=== PATIENT | female | born 1955 | race African-American/Black ===

== ENCOUNTER 2024-01-29 12:25 | Inpatient (IN) | payer MEDICARE, MEDICAID ==
[~2024-01-29 12:25] MED LIST: Iopamidol-370 76% 500 ML MDV (1 ML CHARGE) ONE
[2024-01-29] MEDS ORDERED: TETANUS, DIPHTHERIA TOX,ADULT (TDVAX) 0.5 ML VIAL IM ONE (15:24)
[2024-01-29] MEDS ORDERED: Ondansetron PF 4 MG/2 ML Vial IVP PRN (15:24)
[2024-01-29] MEDS ORDERED: Ondansetron ODT 4 MG TAB PO PRN (15:24)
[2024-01-29] MEDS ORDERED: Methocarbamol 500 MG TAB PO PRN (15:24)
[2024-01-29] MEDS ORDERED: Dextrose 50% Abboject 50 ML SYRINGE SLOW IVP PRN (15:24)
[2024-01-29] MEDS ORDERED: Dextrose 5% in Water 1,000 ML IV PRN (15:24)
[2024-01-29] MEDS ORDERED: Glucagon 1 MG/ML KIT IM PRN (15:24)
[2024-01-29] MEDS ORDERED: Acetaminophen 325 MG TAB PO PRN (15:24)
[2024-01-29] MEDS ORDERED: Lorazepam 1 MG TAB PO PRN (16:58)
[2024-01-29] MEDS ORDERED: Lorazepam 2 MG/ML VIAL IM PRN (16:58)
[2024-01-29] MEDS ORDERED: Electrolyte Replacement Protocol 1 EACH FS SCH (17:00)
[2024-01-29] MEDS: Sodium Chloride 0.9% 1,000 ML IV SCH (19:32)
[2024-01-29] MEDS: Lorazepam 1 MG TAB PO SCH (19:32)
[2024-01-29] MEDS: Thiamine HCl 200 MG/2 ML VIAL SLOW IVP SCH (19:33)
[2024-01-29] MEDS: Folic Acid 1 MG TAB PO SCH (19:34)
[2024-01-29 19:40] VITALS: BMI 25.0
[2024-01-29] MEDS: TETANUS AND DIPHTHERIA TOX/PF 0.5 ML DISP.SYRIN IM SCH (20:39)
[2024-01-29] MEDS: Metoprolol Tartrate 25 MG TAB PO SCH (20:40)
[2024-01-29] MEDS: Multivit, Therapeutic 1 TAB PO SCH (20:40)
[2024-01-29 22:08] LABS: Magnesium 1.4 mg/dL (1.6-2.6); Phosphorus 3.2 mg/dL (2.3-4.7)
[2024-01-29] MEDS: Magnesium Sulfate In Water 4 GM in Premix 1 BAG IVPB SCH (22:42)
[2024-01-30] MEDS: traMADol HCl 50 MG TAB PO PRN (04:08)
[2024-01-30 05:20] LABS: #Basophils 0.07 10x3/uL (0.0-0.2); %Basophils 0.5 % (0.0-1.0); %Eosinophils 0.5 % (0.0-10.0); %Lymphocytes 25.8 % (21.0-51.0); %Monocytes 13.1 % (0.0-10.0); %Neutrophils 59.4 % (42.0-75.0); Hemoglobin 8.7 g/dL (12.0-16.0); Mean Corpuscular HGB CONC 33.5 g/dL (32.0-36.0); Mean Corpuscular Hemoglobin 31.3 pg (27.0-31.0); Mean Corpuscular Volume 93.5 fL (78.0-98.0); Mean Platelet Volume 9.7 fL (7.4-10.4); Platelet Count 264 10x3/uL (130-400); RBC Distribution Width 12.3 % (11.5-14.5); Red Blood Cell (RBC) Count 2.78 mill/uL (4.20-5.40)
[2024-01-30 05:37] LABS: Anion Gap 12 mmol/L (10-20); BUN (Urea Nitrogen) 12 mg/dL (9.8-20.1); Calc. Creatinine Clearance 73 mL/min (70-130); Calcium 9.2 mg/dL (7.8-10.44); Carbon Dioxide 21 mmol/L (23-31); Chloride 101 mmol/L (98-107); Estimated GFR 83; Glucose 112 mg/dL (80-115); Potassium 3.9 mmol/L (3.5-5.1); Sodium 130 mmol/L (136-145)
[2024-01-30] MEDS ORDERED: fentaNYL PF 100 MCG/2 ML SYRINGE ONE ×3 (07:42→13:42)
[2024-01-30] MEDS ORDERED: PROPOFOL 0 ML ONE (07:42)
[2024-01-30] MEDS ORDERED: CEFAZOLIN 2 GM in Sodium Chloride 0.9% 100 ML IVPB SCH (08:00)
[2024-01-30] MEDS: Amlodipine 5 MG TAB PO SCH (08:19)
[2024-01-30] MEDS ORDERED: CEFAZOLIN 2 GM VIAL ONE (10:41)
[2024-01-30] MEDS ORDERED: Sodium Chloride 0.9% 100 ML ONE (10:41)
[2024-01-30] MEDS ORDERED: Dexamethasone 20 MG/5 ML VIAL ONE (11:25)
[2024-01-30] MEDS ORDERED: Ondansetron PF 4 MG/2 ML Vial ONE (11:25)
[2024-01-30] MEDS ORDERED: Rocuronium Bromide 10 MG/ML (10ML VIAL) ONE (11:55)
[2024-01-30] MEDS ORDERED: Ondansetron HCl/PF 4 MG/2 ML Vial IVP PRN (12:08)
[2024-01-30] MEDS ORDERED: Promethazine HCl 25 MG/ML VIAL IM PRN (12:08)
[2024-01-30] MEDS ORDERED: PACU-Morphine 4MG/ML VIAL SLOW IVP PRN (12:08)
[2024-01-30] MEDS ORDERED: fentaNYL 50 mcg/mL 1 mL Vial ONE ×2 (13:07→13:11)
[2024-01-30] MEDS ORDERED: Lorazepam 1 MG TAB PO PRN (16:58)
[2024-01-30] MEDS: CEFAZOLIN 2 GM in Sodium Chloride 0.9% 100 ML IVPB SCH (17:16)
[2024-01-30] MEDS: Atorvastatin Calcium 20 MG TAB PO SCH (21:34)
[2024-01-31 04:28] LABS: #Basophils 0.03 10x3/uL (0.0-0.2); %Basophils 0.2 % (0.0-1.0); %Eosinophils 0.2 % (0.0-10.0); %Lymphocytes 8.5 % (21.0-51.0); %Monocytes 7.9 % (0.0-10.0); %Neutrophils 82.3 % (42.0-75.0); Hematocrit 31.9 % (36.0-47.0); Hemoglobin 10.5 g/dL (12.0-16.0); Mean Corpuscular HGB CONC 32.9 g/dL (32.0-36.0); Mean Corpuscular Hemoglobin 30.7 pg (27.0-31.0); Mean Corpuscular Volume 93.3 fL (78.0-98.0); Mean Platelet Volume 9.2 fL (7.4-10.4); Platelet Count 256 10x3/uL (130-400); RBC Distribution Width 14.6 % (11.5-14.5); Red Blood Cell (RBC) Count 3.42 mill/uL (4.20-5.40)
[2024-01-31 05:02] LABS: Anion Gap 12 mmol/L (10-20); BUN (Urea Nitrogen) 9 mg/dL (9.8-20.1); Calc. Creatinine Clearance 74 mL/min (70-130); Calcium 9.6 mg/dL (7.8-10.44); Carbon Dioxide 20 mmol/L (23-31); Chloride 103 mmol/L (98-107); Estimated GFR 84; Glucose 188 mg/dL (80-115); Potassium 3.7 mmol/L (3.5-5.1); Sodium 131 mmol/L (136-145)
[2024-01-31] MEDS: hydrALAZINE 20 MG/ML VIAL SLOW IVP PRN (05:52)
[2024-01-31] MEDS: FLU (Fluad Triv) TS24-25 (65UP)/MF59C/PF 45 MCG/0.5 ML Syringe IM ONE (09:15)
[2024-01-31] MEDS: Amlodipine 10 MG TAB PO SCH (09:15)
[2024-01-31] MEDS: Lorazepam 0.5 MG TAB PO SCH (16:48)
[2024-01-31] MEDS ORDERED: Lorazepam 1 MG TAB PO PRN (16:58)
[2024-02-01 06:17] LABS: Anion Gap 16 mmol/L (10-20); BUN (Urea Nitrogen) 10 mg/dL (9.8-20.1); Calc. Creatinine Clearance 85 mL/min (70-130); Calcium 9.7 mg/dL (7.8-10.44); Carbon Dioxide 19 mmol/L (23-31); Chloride 106 mmol/L (98-107); Estimated GFR 94; Glucose 101 mg/dL (80-115); Potassium 3.6 mmol/L (3.5-5.1); Sodium 137 mmol/L (136-145)
[2024-02-01 06:47] LABS: #Basophils 0.05 10x3/uL (0.0-0.2); #Eosinophils Less than 0.03 10x3/uL (0.0-0.7); %Basophils 0.2 % (0.0-1.0); %Lymphocytes 21.4 % (21.0-51.0); %Monocytes 12.8 % (0.0-10.0); %Neutrophils 64.4 % (42.0-75.0); Hematocrit 35.1 % (36.0-47.0); Hemoglobin 11.6 g/dL (12.0-16.0); Mean Corpuscular Hemoglobin 30.7 pg (27.0-31.0); Mean Corpuscular Volume 92.9 fL (78.0-98.0); Mean Platelet Volume 9.8 fL (7.4-10.4); Platelet Count 257 10x3/uL (130-400); RBC Distribution Width 14.6 % (11.5-14.5); Red Blood Cell (RBC) Count 3.78 mill/uL (4.20-5.40)
[2024-02-01] MEDS: Enoxaparin 40 MG (0.4 mL) SYRINGE SC SCH (09:01)
[2024-02-01] MEDS: Thiamine 100 MG TAB PO SCH (09:01)
[2024-02-01 10:36] LABS: Bilirubin Negative (Negative); Blood, Urine Negative (Negative); CAUTI Indications for Culture Fever or rigors; Clarity Clear (Clear); Glucose, Urine (Dipstick) Normal (Negative); Ketone, Urine 10 mg/dL (Negative); Leukocyte Negative Leu/uL (Negative); Nitrite Negative (Negative); Protein, Urine (Dipstick) Negative (Neg-Trace); RBC/HPF None Seen HPF (0-3); Specific Gravity, Urine 1.004 (1.002-1.036); Squamous Epithelial None Seen HPF (0-3); Urobilinogen Normal mg/dL (Less than 2); WBC/HPF 0-3 HPF (0-3)
[2024-02-01 10:39] LABS: Bacteria/HPF 1+ HPF (None Seen); Urine Culture Reflex No No
[2024-02-01] MEDS: HYDROcodone/Acetaminophen 5/325 mg Tablet PO PRN (10:57)
[2024-02-01] MEDS ORDERED: Lorazepam 0.5 MG TAB PO PRN (16:58)
[2024-02-02 05:35] LABS: #Basophils 0.08 10x3/uL (0.0-0.2); %Basophils 0.5 % (0.0-1.0); %Eosinophils 0.8 % (0.0-10.0); %Lymphocytes 32.1 % (21.0-51.0); %Monocytes 11.9 % (0.0-10.0); %Neutrophils 53.6 % (42.0-75.0); Hematocrit 32.9 % (36.0-47.0); Hemoglobin 10.7 g/dL (12.0-16.0); Mean Corpuscular HGB CONC 32.5 g/dL (32.0-36.0); Mean Corpuscular Hemoglobin 30.2 pg (27.0-31.0); Mean Corpuscular Volume 92.9 fL (78.0-98.0); Mean Platelet Volume 9.5 fL (7.4-10.4); Platelet Count 324 10x3/uL (130-400); RBC Distribution Width 14.5 % (11.5-14.5); Red Blood Cell (RBC) Count 3.54 mill/uL (4.20-5.40)
[2024-02-02 06:21] LABS: Anion Gap 14 mmol/L (10-20); Calc. Creatinine Clearance 87 mL/min (70-130); Calcium 9.7 mg/dL (7.8-10.44); Carbon Dioxide 21 mmol/L (23-31); Chloride 108 mmol/L (98-107); Estimated GFR 95; Glucose 85 mg/dL (80-115); Potassium 3.6 mmol/L (3.5-5.1); Sodium 139 mmol/L (136-145)
[2024-02-02 06:54] LABS: BUN (Urea Nitrogen) 12 mg/dL (9.8-20.1)
[2024-02-02] MEDS: Lisinopril 5 MG TAB PO SCH (09:32)
[2024-02-03 05:54] LABS: #Basophils 0.08 10x3/uL (0.0-0.2); %Basophils 0.6 % (0.0-1.0); %Lymphocytes 36.5 % (21.0-51.0); %Monocytes 14.1 % (0.0-10.0); %Neutrophils 46.8 % (42.0-75.0); Mean Corpuscular HGB CONC 32.3 g/dL (32.0-36.0); Mean Corpuscular Hemoglobin 30.8 pg (27.0-31.0); Mean Corpuscular Volume 95.4 fL (78.0-98.0); Mean Platelet Volume 9.3 fL (7.4-10.4); Platelet Count 315 10x3/uL (130-400); RBC Distribution Width 14.5 % (11.5-14.5); Red Blood Cell (RBC) Count 3.25 mill/uL (4.20-5.40)
[2024-02-03] MEDS: Lactulose 20 GM (30 mL) UDCUP PO SCH (15:24)
[2024-02-03] MEDS ORDERED: Polyethylene Glycol 3350 17 GM Packet PO PRN (15:31)
[2024-02-05 11:47] VITALS: BMI 25.0
[2024-02-05 12:42] VITALS: BP 124/74; TEMP 98.3
== END 2024-02-05 14:25 | DRG 481 ==
LOC: SURG A 13:35
PROVIDERS: ADMIT Surgery; ATTEND Surgery
PROC: 0QSB06Z Reposition Right Lower Femur with Intramedullary Internal Fixation Device, Open Approach (ICD-10-PCS; principal; 2024-01-30)
PROC: 30233N1 Transfusion of Nonautologous Red Blood Cells into Peripheral Vein, Percutaneous Approach (ICD-10-PCS; 2024-01-30)
DX: S72.451A Displaced supracondylar fracture without intracondylar extension of lower end of right femur, initial encounter for closed fracture (principal); D62 Acute posthemorrhagic anemia; E87.1 Hypo-osmolality and hyponatremia; D63.8 Anemia in other chronic diseases classified elsewhere; G89.29 Other chronic pain; I10 Essential (primary) hypertension; F10.10 Alcohol abuse, uncomplicated; I73.9 Peripheral vascular disease, unspecified; E78.5 Hyperlipidemia, unspecified; D72.829 Elevated white blood cell count, unspecified; K59.00 Constipation, unspecified; Z95.1 Presence of aortocoronary bypass graft; Z86.73 Personal history of transient ischemic attack (TIA), and cerebral infarction without residual deficits; Z79.82 Long term (current) use of aspirin; Z79.899 Other long term (current) drug therapy; Z91.81 History of falling; W19.XXXA Unspecified fall, initial encounter; Y93.89 Activity, other specified; Y92.89 Other specified places as the place of occurrence of the external cause
CPT/HCPCS: 36415; 36430; 75635; 80048; 81001; 83735; 84100; 85025; 86850; 86900; 86901; 87040; 90714; C1713; J0360; J1100; J1650; J2405; J2704; J3010; J3411; J3475; J7030; P9016; Q9967